=== PATIENT | female | born 1980 | race Caucasian/White ===

== ENCOUNTER → 2021-09-21 | Day surgery (SDC) | payer OTHER ==
[~2021-09-21] VITALS: Ht 162.6 cm; Wt 138.8 kg
[~2021-09-21] MED LIST: ALLERGY SHOTS IJ; AMOX TR-K CLV1 EAC4 PO; AZELASTINE137 MCG/0.; CLARITIN10 MG PO; DULERA 200 MCG8.8 GM INH; FLUTICASONE PRO16 GM; NORCO 5-325 TA1 EACH PO; ONDANSETRON ODT4 MG PO; PRINIVIL10 MG PO; SENNA-DOCUSATE1 EACH PO; SINGULAIR10 MG PO; VENTOLIN HFA IN18 GM INH; VIBRAMYCIN100 MG PO; VITAMIN D35000 UNIT PO; VOLTAREN **OUT75 MG PO
== END | disposition home or self-care (01) ==
LOC: FAS 06:42
DX: K57.30 Diverticulosis of large intestine without perforation or abscess without bleeding (principal); D12.3 Benign neoplasm of transverse colon; E11.9 Type 2 diabetes mellitus without complications; I10 Essential (primary) hypertension; E66.9 Obesity, unspecified; Z68.43 Body mass index [BMI] 50.0-59.9, adult; Z80.0 Family history of malignant neoplasm of digestive organs
CPT/HCPCS: J1610; J2704; J7120